=== PATIENT | female | born 1980 | race Caucasian/White ===

== ENCOUNTER 2016-12-16 12:27 | Emergency (ER) | payer MEDICAID ==
[2016-12-16 13:23] VITALS: BP 120/86
[2016-12-16] MEDS ORDERED: HYDROCODONE/ACETAMINOPHEN 5-325 MG 6 TAB/DSPK PO PRN (13:23)
--- NOTE | 2016-12-16 13:25 | ER Document Report ---
ED Oral Problem - General Chief Complaint: Swelling Stated Complaint: LEFT CHEEK/JAW PAIN, SWELLING Time Seen by Provider: 12/16/16 13:23 Mode of Arrival: Ambulatory Information source: Patient TRAVEL OUTSIDE OF THE [place] IN LAST 30 DAYS: No - HPI Patient complains to provider of: Swelling of face, Toothache Onset: Yesterday Onset: Gradual Quality of pain: Achy Severity: Moderate Pain Level: 4 Swollen jaw/face: Mild Notes: Is a 36-year-old female who presents to the emergency room complaining of tooth pain with left-sided facial swelling that started yesterday worsened today, she does report a foul taste in her mouth, denies any discharge, no injury, no fevers, has a history of poor dentition and no current dentist - Related Data Allergies/Adverse Reactions: No Known Allergies Allergy (Verified 08/06/13 15:45) Past Medical History - General Information source: Patient - Social History Smoking Status: Current Every Day Smoker Family History: Reviewed & Not Pertinent Patient has suicidal ideation: No Patient has homicidal ideation: No - Past Medical History Cardiac Medical History: Reports: Hx Hypertension Denies: Hx Coronary Artery Disease, Hx Heart Attack Pulmonary Medical History: Denies: Hx Asthma, Hx Bronchitis, Hx COPD, Hx Pneumonia Neurological Medical History: Reports: Hx Seizures - x1(2005- drug related) . Denies: Hx Cerebrovascular Accident Renal/ Medical History: Denies: Hx Peritoneal Dialysis Musculoskeltal Medical History: Reports Hx Arthritis - Lower back Past Surgical History: Reports: Hx Cholecystectomy, Hx Gynecologic Surgery - D&C , Hx Tubal Ligation. Denies: Hx Pacemaker - Immunizations Hx Diphtheria, Pertussis, Tetanus Vaccination: Yes - 2002 Review of Systems - Review of Systems Constitutional: No symptoms reported EENT: See HPI Cardiovascular: No symptoms reported Respiratory: No symptoms reported Gastrointestinal: No symptoms reported Genitourinary: No symptoms reported Female Genitourinary: No symptoms reported Musculoskeletal: No symptoms reported Skin: No symptoms reported Hematologic/Lymphatic: No symptoms reported Neurological/Psychological: No symptoms reported -: Yes All other systems reviewed and negative Physical Exam - Vital signs Vitals: Temp Pulse Resp BP Pulse Ox 97.9 F 115 H 16 120/86 H 99 12/16/16 13:21 12/16/16 13:21 12/16/16 13:21 12/16/16 13:21 12/16/16 13:21 Interpretation: Tachycardic - Notes Notes: - General General appearance: Appears well, Alert In distress: None - HEENT Head: Normocephalic, Atraumatic Eyes: Normal Conjunctiva: Normal Extraocular movements intact: Yes Eyelashes: Normal Pupils: PERRL - Respiratory Respiratory status: No respiratory distress - Cardiovascular Rhythm: Regular - Abdominal Inspection: Normal - Back Back: Normal - Extremities General upper extremity: Normal inspection General lower extremity: Normal inspection - Neurological Neuro grossly intact: Yes Orientation: AAOx4 Latasha Coma Scale Eye Opening: Spontaneous [facility] Coma Scale Verbal: Oriented Latasha Coma Scale Motor: Obeys Commands [facility] Coma Scale Total: 15 - Psychological Associated symptoms: Normal affect, Normal mood - Skin Skin Temperature: Warm Skin Moisture: Dry Skin Color: Normal - HEENT Mouth/Lips: Caries, Other - Diffusely poor dentition with several dental caries , swelling and erythema to the left maxillary gingiva, no fluctuance, no drainage Mucous membranes: Moist Course - Re-evaluation Re-evalutation: 12/16/16 13:44 Patient's physical exam findings consistent with dental infection, she was started on antibiotics and provided with information for follow-up with a dentist, advised to return if any additional concerns or worsening of symptoms, patient acknowledges understanding and agreement with this plan - Vital Signs Vital signs: Temp Pulse Resp BP Pulse Ox 97.9 F 115 H 16 120/86 H 99 12/16/16 13:21 12/16/16 13:21 12/16/16 13:21 12/16/16 13:21 12/16/16 13:21 Discharge - Discharge Clinical Impression: Dental infection Condition: Stable Disposition: HOME, SELF-CARE Instructions: Dentist, Dental Infection or Abscess ([facility]) Additional Instructions: Follow-up with a dentist in the next 2-3 days. Return to the emergency room if symptoms worsen or any additional concerns. Prescriptions: Clindamycin HCl [Cleocin 150 mg Capsule] 450 mg PO Q6 10 Days Forms: Smoking Cessation Education
== END 2016-12-16 13:35 | disposition home or self-care (01) ==
LOC: ER 12:27
DX: K04.7 Periapical abscess without sinus (principal); K02.9 Dental caries, unspecified; K08.89 Other specified disorders of teeth and supporting structures; R00.0 Tachycardia, unspecified; I10 Essential (primary) hypertension; F17.200 Nicotine dependence, unspecified, uncomplicated
CPT/HCPCS: 99283